=== PATIENT | male | born 1930 | race Caucasian/White ===

== ENCOUNTER 2016-09-10 17:52 | Observation (INO) | payer MEDICARE ==
[~2016-09-10] VITALS: Ht 177.8 cm; Wt 59.4 kg
[~2016-09-10 17:52] MED LIST: ALPOS OP; HYDR-1807 PO; NEP; ORE25 PO; PENI500T19 PO; RIVA20TA4 PO; SOTA80TA PO; XALOS OP; [UNRECOGNIZED DRUG - CODE] PO
--- NOTE | 2016-09-10 17:55 | NUR ---
PT BIBA TO BED 1.
[2016-09-10 18:01] VITALS: BP 107/57
--- NOTE | 2016-09-10 18:01 | NUR ---
PATIENT BIBA S/P MECHANICAL FALL AT HOME . PT SUSTAINED LACERATION TO LEFT FOREHEAD, 2CM X 2CM. HX HTN, AND PACEMAKER . DENIES N/V/D; LACERATION NOTED TO LEFT FOREHEAD, SKIN IS OTHERWISE PINK/WARM/DRY; AAOX4 WITH EVEN AND STEADY GAIT; LUNGS CLEAR BL; HR EVEN AND REGULAR; PT DENIES ANY FEVER, CP, SOB, OR COUGH AT THIS TIME; PATIENT STATES PAIN OF 0/10 AT THIS TIME; VSS; PATIENT POSITIONED FOR COMFORT; HOB ELEVATED; BEDRAILS UP X2; BED DOWN. ER MD MADE AWARE OF PT STATUS.
--- NOTE | 2016-09-10 18:18 | NUR ---
PT TRANSPORTED TO CT [facility]IA [facility] [place].
--- NOTE | 2016-09-10 18:35 | NUR ---
PT RETURNED TO BED 1.
[2016-09-10 18:40] LABS: BASOPHILS # (AUTO) 0.1 K/uL (0.00-0.22); BASOPHILS % (AUTO) 0.7 % (0.0-2.0); EOSINOPHILS # (AUTO) 0.2 K/uL (0-0.4); EOSINOPHILS % (AUTO) 2.1 % (0.0-4.0); HEMATOCRIT 33.9 % (36-52); HEMOGLOBIN 10.7 g/dL (12.0-18.0); LYMPHOCYTES # (AUTO) 1.4 K/uL (2.0-11.5); LYMPHOCYTES % (AUTO) 15.7 % (20.5-51.1); MEAN CORPUSCULAR HEMOGLOBIN 28 pg (27-31); MEAN CORPUSCULAR HGB CONC 32 g/dL (33-37); MEAN CORPUSCULAR VOLUME 89 fL (80-94); MONOCYTES % (AUTO) 11.5 % (1.7-9.3); NEUTROPHILS # (AUTO) 6.3 K/uL (1.8-7.7); PLATELET COUNT (AUTO) 291 K/uL (140-450); RED BLOOD CELL COUNT(AUTO) 3.83 MIL/uL (4.20-6.10); RED CELL DISTRIBUTION WIDTH 13.4 % (11.6-13.7)
[2016-09-10 18:53] LABS: INR 1.5 (0.8-1.2); PARTIAL THROMBOPLASTIN TIME 35.9 secs (22-35.6); PROTHROMBIN TIME 14.3 secs (10.8-13.4)
[2016-09-10 18:56] LABS: ANION GAP 11.7 (8-16); CALCIUM 8.3 mg/dL (8.5-10.1); CARBON DIOXIDE 27.2 mmol/L (21-32); CHLORIDE 95 mmol/L (98-107); CREATININE 1.5 mg/dL (0.6-1.3); GLUCOSE 101 mg/dL (74-106); POTASSIUM 3.9 mmol/L (3.5-5.1); SODIUM SERUM 130 mmol/L (136-145); UREA NITROGEN, BLOOD 23 mg/dL (7-18)
--- NOTE | 2016-09-10 19:00 | NUR ---
PT RESTING QUIETLY ON BLAYNE. AUDIE AT BEDSIDE.
[2016-09-10 19:01] LABS: ALANINE AMINOTRANSFERASE 19 U/L (12-78); ALBUMIN 2.8 g/dL (3.4-5.0); ALKALINE PHOSPHATASE 54 U/L (46-116); ASPARTATE AMINOTRANSFERASE 21 U/L (15-37); TOTAL BILIRUBIN 0.5 mg/dL (0.0-1.0); TOTAL PROTEIN, SERUM 6.8 g/dL (6.4-8.2)
--- NOTE | 2016-09-10 19:11 | NUR ---
Pt report given to SATHYA GOOD. Transfer of care at this time.
--- NOTE | 2016-09-10 19:15 | NUR ---
PT STABLE, RESTING IN BED ON MONITOR, NO S/S OF DISTRESS NOTED AT THE MOMENT. FAMILY AT BEDSIDE.
[2016-09-10] MEDS ORDERED: NEOMYCIN/POLYMYXIN/BACITRACIN 0.9 GM/1 PKT TP ONE (19:41)
--- NOTE | 2016-09-10 20:39 | NUR ---
Patient will be admitted to care of DR BANEGAS. Admited to TELEMETRY. Will go to room 108 A. Belongings list completed. Report to SATHYA HINDS.
[2016-09-10] MEDS ORDERED: ONDANSETRON 4 MG/2 ML VIAL IVP PRN (20:40)
[2016-09-10] MEDS ORDERED: LORazepam 2 MG/ML VIAL IVP PRN (20:40)
[2016-09-10] MEDS ORDERED: MORPHINE SULFATE 2 MG/ML SYR IVP PRN (20:40)
--- NOTE | 2016-09-10 20:45 | NUR ---
PT TRASFERRED TO TELEMETRY, ROOM 108 A. VSS, PT STABLE. ACCOMPANIED BY LATISHA RN AND ZAYRA, EMT. TRASFERRED VIA [facility] ACCOUNT MANAGER TRAINEE IN BED.
[2016-09-10 20:55] VITALS: BP 133/64
--- NOTE | 2016-09-10 20:55 | NUR ---
PATIENT TRANSFERRED FROM ER VIA GURNEY. NO RESPIRATORY DISTRESS, SOB, OR DISCOMFORT. PATIENT IS A 86-YEAR-OLD, MALE, DIAGNOSIS: CONCUSSION, S/P FALL. ADMITTING MD DR. BANEGAS. GENERALIZED WEAKNESS NOTED. INITIAL ASSESSMENT AND BODY CHECK DONE. PATIENT IS AOX4, IV ACCESS TO LEFT AC 20G PATENT. LACERATION TO LEFT FOREHEAD CLOSED WITH MEENA, COVERED WITH DRESSING; DRY AND INTACT. PRESSURE ULCER NOTED, NO DRAINAGE NOTED. DISCUSSED PLAN OF CARE, MEDICATION REGIMENT, AND PAIN MANAGEMENT WITH PATIENT. PATIENT VERBALIZED UNDERSTANDING. PLACED PATIENT ON SAFETY/FALL/PRESSURE ULCER PRECAUTIONS. CALL LIGHT LEFT WITHIN REACH, WILL CONTINUE TO MONITOR.
[2016-09-10] MEDS ORDERED: hydrALAZINE 25 MG TAB PO SCH (21:00)
[2016-09-10] MEDS ORDERED: DILTIAZEM HYDROCHLORIDE PO SCH (21:00)
[2016-09-10] MEDS: SOTALOL 80 MG TAB PO SCH (21:44)
[2016-09-10] MEDS: NACL 0.9% 1,000 ML IV SCH (21:45)
--- NOTE | 2016-09-10 22:10 | NUR ---
PATIENT LAYING IN BED, WATCHING TELEVISION. NO RESPIRATORY DISTRESS, SOB, OR DISCOMFORT. CALL LIGHT LEFT WITHIN REACH, WILL CONTINUE TO MONITOR.
[2016-09-11] VITALS: BP 123/94
--- NOTE | 2016-09-11 00:46 | NUR ---
PATIENT SITTING UP IN BED, WATCHING TELEVISION. NO RESPIRATORY DISTRESS, SOB, OR DISCOMFORT. CALL LIGHT LEFT WITHIN REACH, WILL CONTINUE TO MONITOR.
[2016-09-11] MEDS: Z-GUARD PASTE TP SCH ×2 (01:31→13:43)
--- NOTE | 2016-09-11 03:32 | NUR ---
PATIENT IN BED, SLEEPING. NO RESPIRATORY DISTRESS, SOB, OR DISCOMFORT. CALL LIGHT LEFT WITHIN REACH, WILL CONTINUE TO MONITOR.
[2016-09-11 04:00] VITALS: BP 127/72
--- NOTE | 2016-09-11 05:59 | NUR ---
PATIENT ASLEEP. NO RESPIRATORY DISTRESS, SOB, OR DISCOMFORT. CALL LIGHT LEFT WITHIN REACH, WILL CONTINUE TO MONITOR.
[2016-09-11 06:54] LABS: BASOPHILS % (AUTO) 0.5 % (0.0-2.0); EOSINOPHILS # (AUTO) 0.2 K/uL (0-0.4); EOSINOPHILS % (AUTO) 2.8 % (0.0-4.0); HEMATOCRIT 32.9 % (36-52); HEMOGLOBIN 10.9 g/dL (12.0-18.0); LYMPHOCYTES # (AUTO) 1.4 K/uL (2.0-11.5); LYMPHOCYTES % (AUTO) 19.3 % (20.5-51.1); MEAN CORPUSCULAR HEMOGLOBIN 29 pg (27-31); MEAN CORPUSCULAR HGB CONC 33 g/dL (33-37); MEAN CORPUSCULAR VOLUME 87 fL (80-94); MONOCYTES # (AUTO) 0.9 K/uL (0.8-1.0); NEUTROPHILS # (AUTO) 4.8 K/uL (1.8-7.7); NEUTROPHILS % (AUTO) 64.4 % (42.2-75.2); PLATELET COUNT (AUTO) 279 K/uL (140-450); RED BLOOD CELL COUNT(AUTO) 3.78 MIL/uL (4.20-6.10); RED CELL DISTRIBUTION WIDTH 13.6 % (11.6-13.7); WHITE BLOOD COUNT (AUTO) 7.3 K/uL (4.8-10.8)
[2016-09-11 07:08] LABS: ANION GAP 7.8 (8-16); CALCIUM 7.9 mg/dL (8.5-10.1); CARBON DIOXIDE 31.2 mmol/L (21-32); CHLORIDE 98 mmol/L (98-107); CREATININE 1.2 mg/dL (0.6-1.3); GLUCOSE 90 mg/dL (74-106); SODIUM SERUM 133 mmol/L (136-145); UREA NITROGEN, BLOOD 18 mg/dL (7-18)
--- NOTE | 2016-09-11 07:10 | NUR ---
REPORT GIVEN TO DAY NURSE, MARIA ESTHER (ORIENTEE). PATIENT RESTING IN BED, STABLE. NO RESPIRATORY DISTRESS, SOB, OR DISCOMFORT. ALL NEEDS ATTENDED TO DURING SHIFT, CALL LIGHT LEFT WITHIN REACH.
--- NOTE | 2016-09-11 07:30 | NUR ---
RECEIVED PT RESTING COMFORTABLY IN BED, AAOX4, ABLE TO VERBALIZE NEEDS; NO C/O DISTRESS, SOB OR CP AT THIS TIME. S/P FALL WITH LACERATION TO FOREHEAD, CLOSED WITH MEENA, DRESSING CLEAN AND DRY. IVF INFUSING WELL TO LEFT AC, SITE ASYMPTOMATIC. OPEN WOUND TO SACRAL AREA, REDNESS TO LEFT HEEL, REPOSITIONED PT PER PROTOCOL; WOUND CONSULT PENDING. ROUTINE/PLAN OF CARE DISCUSSED AND REVIEWED, PT VERBALIZES UNDERSTANDING AND COMPLIANCE. SAFETY PRECAUTIONS OBSERVED AND MAINTAINED. ENCOURAGED PT TO CALL FOR ASSISTANCE NEEDED.
--- NOTE | 2016-09-11 07:52 | NUR ---
PATIENT HAS BEEN SCREENED AND CATEGORIZED HIGH NUTRITION RISK. PATIENT WILL BE SEEN WITHIN 1-2 DAYS OF ADMISSION. 09/11/16-09/12/[address]
[2016-09-11 08:08] VITALS: BP 122/58
[2016-09-11] MEDS ORDERED: RIVAROXABAN 20 MG PO SCH (09:00)
[2016-09-11] MEDS ORDERED: DILTIAZEM 60 MG TAB PO SCH (09:00)
[2016-09-11] MEDS ORDERED: HYDROCHLOROTHIAZIDE 25 MG TAB PO SCH (09:00)
--- NOTE | 2016-09-11 09:15 | NUR ---
CAROTID US AT BEDSIDE DONE.
[2016-09-11] MEDS: SOTALOL 80 MG TAB PO SCH ×2 (09:25→20:51)
[2016-09-11] MEDS: ASPIRIN 81 MG TAB.CHEW PO SCH (09:25)
[2016-09-11] MEDS: VIT-B COMP/VIT-C/FOLIC ACID 1 TAB PO SCH (09:26)
[2016-09-11] MEDS: RIVAROXABAN 10 MG TAB PO SCH (09:27)
[2016-09-11] MEDS: ACETAMINOPHEN 325 MG TAB PO PRN ×2 (09:28→22:33)
--- NOTE | 2016-09-11 09:30 | NUR ---
VSS; ADMINISTERED ROUTINE MEDS ORDERED W/ EDUCATION, PT TOLERATED WELL. ASSISTED PT TO REPOSITION PER PROTOCOL. AM AND SKIN CARE GIVEN. MEDICATED WITH TYLENOL FOR C/O SACRAL/LOW BACK PAIN, SEE PAIN ASSESSMENT. WILL CONTINUE TO MONITOR.
[2016-09-11] MEDS: NACL 0.9% 1,000 ML IV SCH ×2 (09:31→21:07)
[2016-09-11 12:00] VITALS: BP 109/58
--- NOTE | 2016-09-11 12:00 | NUR ---
VSS. CONDITION STABLE.
[2016-09-11] MEDS: BRIMONIDINE TARTRATE 0.2% OP 5 ML BTL OP SCH ×2 (13:43→20:52)
--- NOTE | 2016-09-11 14:00 | NUR ---
PT SEEN BY PHYSICAL THERAPY. WOUND CARE PERFORMED ON FOREHEAD LACERATION AND SACRAL WOUND, SEE WOUND ASSESSMENT. PT TOLERATED WELL. REPOSITIONED PER PROTOCOL. WILL CONTINUE TO MONITOR.
--- NOTE | 2016-09-11 14:00 | NUR ---
CM NOTE SPOKE W/ FIDENCIO PENALOZA FOR [facility] ([phone]). MADE AWARE THAT PATIENT MAY NEED SNF FOR PHYSICAL THERAPY AND APPROVED FOR PLACEMENT. H&P AND FACESHEET FAXED.
--- NOTE | 2016-09-11 14:41 | NUR ---
09/11/16 RD INITIAL ASSESSMENT COMPLETED PLEASE REFER TO NUTRITION ASSESSMENT UNDER CARE ACTIVITY FOR ESTIMATED NUTRITIONAL NEEDS. RD RECOMMENDATIONS: 1. CONTINUE 2GM NA DIET TOLERATED PER MD 2. CONSIDER ADDING CCHO 75 GM TO PT DIET IF GLUCOSE LEVELS ARE NOT WNL 3. RD TO ADD DIET [facility]ES TID FOR ADDITIONAL KCAL AND PROTEIN INTAKE D/T PT WITH RECENT UNINTENTIONAL WEIGHT LOSS 4. RD WILL F/U 3-5 DAYS; MODERATE RISK. LATISHA WIGGINS RD
[2016-09-11 16:00] VITALS: BP 103/60
--- NOTE | 2016-09-11 16:00 | NUR ---
VSS. NO CHANGE IN PT CONDITION.
--- NOTE | 2016-09-11 18:00 | NUR ---
NO ECHO RESULTS AT THIS TIME. PT REMAINS STABLE, RESTING COMFORTABLY IN BED.
--- NOTE | 2016-09-11 19:22 | NUR ---
CONDITION STABLE, ENDORSED PLAN OF CARE TO GAMBRELER.
--- NOTE | 2016-09-11 19:23 | NUR ---
RECEIVED PT IN STABLE CONDITION FROM SATHYA LY. NO SOB, NO SIGNS OF DISTRESS. VS STABLE ON ROOM AIR. PT IS AOX4, AMBULATES WITH ASSIST, ON BEDREST AT THIS TIME. PT DENIES PAIN AT THIS TIME. IV TO LT AC 20G PATENT, ASYMPTOMATIC, INTACT, IVF RUNNING. PT WITH LACERATION TO LT HEAD, 9 MEENA HILTON, SACRAL WOUND HILTON. PLAN OF CARE DISCUSSED WITH PT. SAFETY MEASURES IN PLACE. CALL LIGHT WITHIN REACH. WILL CONTINUE TO MONITOR.
[2016-09-11 20:00] VITALS: BP 118/48
--- NOTE | 2016-09-11 20:52 | NUR ---
NOTIFIED BY BIOGEOGRAPHER THAT PACEMAKER NOT SPIKING FOR 10 SECONDS, WILL CONTINUE TO MONITOR PT AND MAKE MD AWARE. CHECKED ON PT, NO SOB, NO SIGNS OF DISTRESS. VS STABLE ON ROOM AIR. CALL LIGHT WITHIN REACH. SAFETY MEASURES IN PLACE. WILL CONTINUE TO MONITOR.
--- NOTE | 2016-09-11 21:07 | NUR ---
PT TOLERATED DUE MEDS WELL. NO SOB, NO SIGNS OF DISTRESS. VS STABLE ON ROOM AIR. IV SITE ASYMPTOMATIC, INTACT, IVF RUNNING. CALL LIGHT WITHIN REACH. SAFETY MEASURES IN PLACE. WILL CONTINUE TO MONITOR.
--- NOTE | 2016-09-11 22:31 | NUR ---
PT C/O PAIN IN UPPER BACK, WILL MEDICATE PER MD ORDER. NO SOB, NO SIGNS OF DISTRESS. IV SITE ASYMPTOMATIC, INTACT, IVF RUNNING. PLAN OF CARE DISCUSSED WITH PT. SAFETY MEASURES IN PLACE. CALL LIGHT WITHIN REACH. WILL CONTINUE TO MONITOR.
--- NOTE | 2016-09-11 22:48 | NUR ---
NOTIFIED BY IT PROJECT MANAGER THAT PT HAD A SHORT RUN OF V-TACH WITH PACEMAKER NOT CATCHING IT. WILL MAKE MD AWARE.
--- NOTE | 2016-09-11 22:52 | NUR ---
NOTIFIED BY [employer] SPECIAL ED TEACHER THAT PACEMAKER NOT SPIKING FOR 10 SECONDS, WILL CONTINUE TO MONITOR PT AND MAKE MD AWARE. CHECKED ON PT, NO SOB, NO SIGNS OF DISTRESS. VS STABLE ON ROOM AIR. CALL LIGHT WITHIN REACH. SAFETY MEASURES IN PLACE. WILL CONTINUE TO MONITOR. Addendum: 09/11/16 at 2306 by Emily Tinoco RN WRONG TIME
--- NOTE | 2016-09-11 22:58 | NUR ---
CALLED MD BANEGAS. MADE AWARE OF PACER NOT SPIKING EARLIER THIS EVENING, SHORT RUN OF V-TACH, AND POSSIBILITY OF PACEMAKER MALFUNCTIONING. STATED PACEMAKER WILL BE CHECKED TOMORROW. NO ORDERS RECEIVED.
[2016-09-12] VITALS: BP 99/47
--- NOTE | 2016-09-12 00:15 | NUR ---
ORTHOSTATIC VS PERFORMED: SUPINE-O2 98, HR 70, BP 99/47. SITTING-O297, HR 75, BP 99/68. STANDING-O2 98, HR 82, BP 120/79. NO SOB, NO SIGNS OF DISTRESS. PT DENIES PAIN AT THIS TIME. IV SITE ASYMPTOMATIC, INTACT, IVF RUNNING. PLAN OF CARE DISCUSSED WITH PT. SAFETY MEASURES IN PLACE. CALL LIGHT WITHIN REACH. WILL CONTINUE TO MONITOR.
[2016-09-12] MEDS: Z-GUARD PASTE TP SCH ×2 (01:47→13:00)
--- NOTE | 2016-09-12 02:27 | NUR ---
PT ASLEEP IN BED. NO SOB, NO SIGNS OF DISTRESS. IV SITE ASYMPTOMATIC, INTACT, PATENT, IVF RUNNING. SAFETY MEASURES IN PLACE. CALL LIGHT WITHIN REACH. WILL CONTINUE TO MONITOR.
[2016-09-12 04:00] VITALS: BP 125/59
--- NOTE | 2016-09-12 04:17 | NUR ---
VS STABLE ON ROOM AIR. NO SOB, NO SIGNS OF DISTRESS. PT DENIES PAIN AT THIS TIME. IV SITE ASYMPTOMATIC, INTACT, PATENT, IVF RUNNING. PLAN OF CARE DISCUSSED WITH PT. SAFETY MEASURES IN PLACE. CALL LIGHT WITHIN REACH. WILL CONTINUE TO MONITOR.
[2016-09-12] MEDS: BRIMONIDINE TARTRATE 0.2% OP 5 ML BTL OP SCH ×2 (04:28→13:14)
--- NOTE | 2016-09-12 07:19 | NUR ---
ENDORSED PT IN STABLE CONDITION TO SATHYA PENALOZA. ALL NEEDS HAVE BEEN MET AT THIS TIME.
--- NOTE | 2016-09-12 07:30 | NUR ---
RECEIVED PT FROM [facility] ON RAILS CONSULTANT SATHYA TUCKER. PT AWAKE, ALERT, AND ORIENTED. ROOM AIR, NO S/S OF RESPIRATORY DISTRESS NOTED. PT HAS LACERATION TO LEFT HEAD, HILTON. SKIN NON INTACT ( SEE WOUND ASSESSMENT). IV TO LEFT AC, INTACT AND PATENT. PT DENIES PAIN OR DISCOMFORT AT THIS TIME. POC DISCUSSED WITH PT, WILL CONTINUE TO MONITOR.
[2016-09-12 08:00] VITALS: BP_SYST 11; BP_SYST 110; BP_DIAS 41
--- NOTE | 2016-09-12 08:05 | NUR ---
SERVED PT URINAL, PT HAD CLEAR YELLOW URINE 200 ML.
--- NOTE | 2016-09-12 08:50 | NUR ---
WOUND CARE EVALUATION NOTES: REASON FOR EVALUATION: PRESSURE ULCER AND FOREHEAD LACERATION COMPLETE SKIN ASSESSMENT DONE ON THIS 86 Y/O MALE PATIENT FROM HOME TO [facility], WITH INITIAL DIAGNOSIS OF CONCUSSION 2/2 FALL. PAST MEDICAL HISTORY INCLUDE A FIB, HYPERTENSION AND CHRONIC KIDNEY DISEASE. ALL ABOVE INFORMATION WAS OBTAINED FROM THE ADMISSION H&P. LABS ARE WBC 7.3, H/H 10.9/32.9, GLUCOSE 90, ALBUMIN 2.8, PT/INR 14.3/1.5 AND PTT 35.9. CURRENT MEDS INCLUDE MULTIVITAMINS/MINERALS, ASPIRIN AND MORPHINE. PATIENT IS AWAKE, SLOWED MOVEMENTS, ORIENTED TO PERSON, PLACE, DATE AND TIME. SKIN WARM TO TOUCH WNL, TOENAILS ARE LONG AND DISCOLORED, NO EDEMA, WITH FEW HAIR GROWTH AND +2 BILATERAL PEDAL PULSES. URINE AND BOWEL CONTINENT, ABLE TO MAKE HIS NEEDS KNOWN. ABLE TO TURN SELF WITH MINIMAL ASSISTANCE. PER PATIENT HE USES A WALKER AT HOME. INITIAL PLAN OF CARE AND PRESSURE PREVENTIVE MEASURES DISCUSSED, ABLE TO VERBALIZE UNDERSTANDING. INTEGUMENTARY: RIGHT PARIETAL - LACERATION - 2/2 TO FALL FROM HOME - WITH 9 INTACT MEENA. NO S/S OF INFECTION NOTED AT THIS TIME. SACRALCOCCYX - ST III - X2 SITES - 100% GRANULATING RED. PERIAREA - RED AND MOIST RECOMMENDATIONS: -SACRALCOCCYX: CLEANSE WITH MILD SOAP AND WATER, PAT DRY, APPLY THERAHONEY GEL TO WOUND BED AND Z GUARD TO PERIWOUND AND COVER WITH COMPOSITE DRESSING Q DAY AND PRN WITH SOILING/DISPLACEMENT -CLEANSE PERIAREA WITH MILD SOAP AND WATER, PAT DRY, APPLY Z GUARD BIDWC AND PRN WITH SOILING. LEAVE OPEN TO AIR -TURN AND REPOSITION PATIENT Q2H TO LEFT AND RIGHT SIDE ONLY TO OFFLOAD SACRALCOCCYX -ASSESS AND MONITOR SKIN CONDITION DURING POSITION CHANGE, PLEASE PAY PARTICULAR ATTENTION TO SACRALCOCCYX, ELBOWS AND HEELS -OFFLOAD BILATERAL HEELS BY PLACING PILLOWS UNDER CALVES AT ALL TIMES, UNLESS OTHERWISE CONTRAINDICATED -PRESSURE REDISTRIBUTION SURFACE THERAPY -KEEP SKIN CLEAN AND DRY AT ALL TIMES. RECOMMENDATIONS DISCUSSED WITH PRIMARY RN. WILL FOLLOW UP PATIENT Q 7 DAYS AND PRN. PLEASE CONTACT [facility] FOR ANY CONCERNS, QUESTIONS AND CHANGES IN SKIN CONDITION.
[2016-09-12] MEDS: VIT-B COMP/VIT-C/FOLIC ACID 1 TAB PO SCH (09:01)
[2016-09-12] MEDS: ASPIRIN 81 MG TAB.CHEW PO SCH (09:01)
[2016-09-12] MEDS: SOTALOL 80 MG TAB PO SCH (09:01)
[2016-09-12] MEDS: RIVAROXABAN 10 MG TAB PO SCH (09:11)
[2016-09-12 09:20] LABS: BASOPHILS % (AUTO) 0.6 % (0.0-2.0); EOSINOPHILS # (AUTO) 0.3 K/uL (0-0.4); EOSINOPHILS % (AUTO) 3.3 % (0.0-4.0); HEMATOCRIT 36.3 % (36-52); HEMOGLOBIN 12.1 g/dL (12.0-18.0); LYMPHOCYTES # (AUTO) 1.3 K/uL (2.0-11.5); MEAN CORPUSCULAR HEMOGLOBIN 30 pg (27-31); MEAN CORPUSCULAR HGB CONC 33 g/dL (33-37); MEAN CORPUSCULAR VOLUME 89 fL (80-94); MONOCYTES # (AUTO) 0.8 K/uL (0.8-1.0); MONOCYTES % (AUTO) 9.4 % (1.7-9.3); NEUTROPHILS # (AUTO) 5.8 K/uL (1.8-7.7); NEUTROPHILS % (AUTO) 70.7 % (42.2-75.2); PLATELET COUNT (AUTO) 289 K/uL (140-450); RED BLOOD CELL COUNT(AUTO) 4.09 MIL/uL (4.20-6.10); RED CELL DISTRIBUTION WIDTH 13.2 % (11.6-13.7); WHITE BLOOD COUNT (AUTO) 8.2 K/uL (4.8-10.8)
[2016-09-12] MEDS: NACL 0.9% 1,000 ML IV SCH (09:27)
[2016-09-12 09:48] LABS: ANION GAP 8.3 (8-16); CALCIUM 7.6 mg/dL (8.5-10.1); CHLORIDE 98 mmol/L (98-107); CREATININE 1.2 mg/dL (0.6-1.3); GLUCOSE 177 mg/dL (74-106); POTASSIUM 3.3 mmol/L (3.5-5.1); SODIUM SERUM 133 mmol/L (136-145); UREA NITROGEN, BLOOD 16 mg/dL (7-18)
--- NOTE | 2016-09-12 09:51 | NUR ---
184.SPOKE WITH TREMAINE FROM [facility]. FOR SNF, USE [facility], AND [facility]. SENT REVIEW AND ORDER FOR SNF TO TREMAINE AT [facility] [phone] PHONE [phone]
[2016-09-12 12:00] VITALS: BP 108/59
[2016-09-12] MEDS ORDERED: THERAHONEY GEL 42.5 GM TP PRN (12:00)
--- NOTE | 2016-09-12 12:00 | NUR ---
Social Service Note: I faxed inquiry to the following snfs: [facility] Annamaria Harris
--- NOTE | 2016-09-12 12:10 | NUR ---
SERVED PT LUNCH TRAY, NO S/S OF RESPIRATORY DISTRESS NOTED.
[2016-09-12] MEDS ORDERED: THERAHONEY GEL 42.5 GM TP SCH (13:00)
--- NOTE | 2016-09-12 13:00 | NUR ---
PACEMAKER CHECKED BY THE [facility].
--- NOTE | 2016-09-12 13:39 | NUR ---
Social Service Note: [facility] : Per Barbie, may accept as long as patient does not need terminal operations manager placement. [facility] : Per Kiya, may accept as long as patient does not need ivs, have cath, have surgical site, Integration Engineer Tasneem aware. Per Tasneem, patient will not need ivs, does not have a cath or surgical site. [facility] : Per Angela, may accept patient. Hudson Steven : I called and left several messages. I met with patient at bedside and informed him of above information. He stated his snf choice is [facility]. Per Kiya, patient may go to room 103B upon discharge, accepting physician is , Integration Engineer Tasneem stern.
--- NOTE | 2016-09-12 14:00 | NUR ---
NOTIFIED DR BANEGAS REGARDING THE PACE MAKER RESULT NEW ORDER OK TO D/C PATIENT TO HOME.
--- NOTE | 2016-09-12 14:56 | NUR ---
RECEIVED A CALL FROM TREMAINE FROM [facility]. THE AUTH FOR [facility] IS [id number]. THE AUTH FOR [facility]ORT IS [id number]. THE PHONE FOR [facility] IS [phone]. I CALLED [facility] AND SPOKE WITH LUIS AND SET UP TRANSPORT FOR BETWEEN 4P.M. AND 5P.M. TREMAINE HAD SAID [facility] TRANSPORT. KAITLIN MCDONNELL AWARE.
--- NOTE | 2016-09-12 15:50 | NUR ---
PATIENT TO GO TO [facility]. HE WILL GO TO ROOM 103[address] UNDER DR. VILLEGAS. XOCHILT MCDONNELL AWARE.
--- NOTE | 2016-09-12 16:57 | NUR ---
REPORT GIVEN TO ELIZABETH MCDONNELL AND NOTIFIED PATIENT'S NEPHEW BILLY REGARDING PATIENT IS GOING TO [facility] ROOM 103B .
[2016-09-12] MEDS ORDERED: LATANOPROST 0.005% OP 2.5 ML BTL OP SCH (21:00)
== END 2016-09-12 17:00 ==
LOC: MED 17:52 → MTU 20:29
PROVIDERS: ADMIT Hospitalist; ATTEND Hospitalist
DX: S01.01XA Laceration without foreign body of scalp, initial encounter (principal); R55 Syncope and collapse; I95.9 Hypotension, unspecified; I48.91 Unspecified atrial fibrillation; I10 Essential (primary) hypertension; E11.9 Type 2 diabetes mellitus without complications; Z79.01 Long term (current) use of anticoagulants; W20.8XXA Other cause of strike by thrown, projected or falling object, initial encounter; Y93.89 Activity, other specified; Y92.89 Other specified places as the place of occurrence of the external cause; Y99.8 Other external cause status
CPT/HCPCS: 12001; 36415; 70450; 80048; 80053; 83735; 85025; 85610; 85730; 87070; 87081; 87186; 93307; 93880; 96360; 96361; 97110; 97116; 97162; 97530; 99285; G0378; G8978; G8979; G8980; J7030; Q0092; 87075